=== PATIENT | male | born 1955 | race Caucasian/White ===

== ENCOUNTER → 2016-09-29 | Day surgery (SDC) | payer MEDICARE, OTHER ==
[~2016-09-29] MED LIST: CHOL100013 PO; IV RINGERS,LACTATED 1000ML 1,000 ML IV SCH; LIDOCAINE 2% PF Vial for OR 5 ML VIAL. ONE; OMEG500C PO; PROPOFOL 20 ML IV ONE; TEST200V3 IM; TRAM50TA PO
[2016-09-29 12:33] VITALS: BP 138/83
== END | disposition home or self-care (01) ==
LOC: SURG 10:31
PROVIDERS: ATTEND Internal Medicine Gastroenterology
DX: Z12.11 Encounter for screening for malignant neoplasm of colon (principal); K64.0 First degree hemorrhoids; K57.30 Diverticulosis of large intestine without perforation or abscess without bleeding; E78.00 Pure hypercholesterolemia, unspecified; Z83.3 Family history of diabetes mellitus; Z85.828 Personal history of other malignant neoplasm of skin; Z96.652 Presence of left artificial knee joint
CPT/HCPCS: G0121; J2704

== ENCOUNTER → 2018-07-02 | Outpatient (CLI) | payer MEDICARE, OTHER ==
[2016-09-29 12:33] VITALS: BP 138/83
[~2018-07-02] MED LIST changes: +GADOBUTROL 10 MMOL/10 ML VIAL IV ONE; -IV RINGERS,LACTATED 1000ML 1,000 ML IV SCH; -LIDOCAINE 2% PF Vial for OR 5 ML VIAL. ONE; -PROPOFOL 20 ML IV ONE
--- NOTE | 2018-07-02 10:58 | RAD ---
MR of the pelvis with and without contrast HISTORY: Worsening chronic left inguinal pain, history of hernia repair. TECHNIQUE: Routine pre and postcontrast images are obtained. FINDINGS: Muscle tissue is intact. No abnormal soft tissue edema, fluid collection or abnormal contrast enhancement. No evidence of inguinal hernia. No significant lymph node enlargement. Bones are intact. No significant joint effusion. Right gluteus minimus and medius tendinosis is noted and is moderate. Much milder left gluteus medius tendinosis is noted. Limited visualization of lower spine demonstrates degenerative spondylosis. IMPRESSION: 1. Moderate right gluteus minimus and medius tendinosis, milder left gluteus medius tendinosis. 2. No evidence of inguinal hernia. Electronically signed by: Suraj Cox MD (07/02/2018 10:54 AM) [id number]
== END | disposition home or self-care (01) ==
LOC: MRI 08:49
PROVIDERS: ATTEND Surgery
DX: M47.896 Other spondylosis, lumbar region (principal); M76.01 Gluteal tendinitis, right hip; M76.02 Gluteal tendinitis, left hip
CPT/HCPCS: 72197; A9585